=== PATIENT | female | born 1960 | race African-American/Black ===

== ENCOUNTER 2024-01-31 11:13 | Emergency (ER) | payer MEDICAID, OTHER ==
[~2024-01-31] VITALS: Ht 165.1 cm; Wt 65.0 kg
[2024-01-31 11:18] VITALS: O2SAT 98
[2024-01-31] MEDS: VANCOMYCIN 1G PREMIX 200 ML IV ONE (11:30)
[2024-01-31] MEDS: SODIUM CHLORIDE 0.9% 1000ML BAG (SEPSIS BOLUS) IV ONE (11:31)
[2024-01-31] MEDS: ATROPINE SULFATE 1MG/ML VIAL IV ONE (11:36)
[2024-01-31 11:37] VITALS: BP 78/45; PULSE 54; RESP 13; TEMP 36.78072; O2SAT 100
[2024-01-31] MEDS: MEROPENEM 1G/100ML 100 ML IV ONE (11:41)
[2024-01-31 11:52] LABS: BASOPHILS % 1.3 % (0.0-2.0); EOSINOPHILS % 5.3 % (0.0-5.0); HEMATOCRIT. 36.7 % (36.0-48.0); HEMOGLOBIN. 11.7 g/dL (12.0-16.0); LYMPHOCYTES % 37.2 % (20.0-50.0); MEAN CORPUSCULAR HEMOGLOBIN 27.7 pg (28.0-32.0); MEAN CORPUSCULAR HGB CONC 31.7 g/dL (31.0-37.0); MEAN CORPUSCULAR VOLUME 87.4 fL (81.0-99.0); MONOCYTES % 9.4 % (2.0-8.0); NEUTROPHILS % 46.8 % (40.0-76.0); PLATELET 200 x1000/uL (130-400); RED BLOOD CELL COUNT 4.21 mill/uL (4.2-5.4); RED CELL DISTRIBUTION WIDTH 15.3 % (11.6-14.6); WHITE BLOOD COUNT 3.3 x1000/uL (4.5-11.0)
[2024-01-31 11:59] LABS: CHLORIDE 110 mEq/L (98-107); SODIUM 139 mEq/L (136-145)
[2024-01-31 12:00] LABS: CALCIUM 10.1 mg/dL (8.7-10.4); CARBON DIOXIDE 26 mEq/L (21-32); INR 0.9; PROTHROMBIN TIME 10.4 sec (9.6-11.0)
[2024-01-31 12:05] LABS: CREATININE 0.7 mg/dL (0.6-1.0); GLUCOSE 103 mg/dL (70-105); UREA NITROGEN BLOOD 6 mg/dL (9-23)
[2024-01-31 12:07] LABS: ALANINE AMINOTRANSFERASE 20 IU/L (10-49); ASPARTATE AMINOTRANSFERASE 26 IU/L (<34); BILIRUBIN DIRECT 0.1 mg/dL (<=3.0); BILIRUBIN TOTAL 0.3 mg/dL (0.1-1.0); PROTEIN TOTAL 6.6 g/dL (6.0-8.3)
[2024-01-31 12:22] LABS: TROPONIN I HIGH SENSITIVITY < 4 ng/L (3.0-34)
== END 2024-01-31 15:06 | disposition left against medical advice (07) ==
LOC: ER 13:42
DX: R00.1 Bradycardia, unspecified (principal); I95.9 Hypotension, unspecified; Z88.5 Allergy status to narcotic agent; Z87.11 Personal history of peptic ulcer disease
CPT/HCPCS: 80076; 80048; 83605; 85025; 85610; 86850; 86900; 86901; 87040; 84484; 36415; 84145; 71045; 70450; 93005; 96365; 96375; 99291; J0461; J2185; J3370; J7030; Z7610 ×3

== ENCOUNTER → 2025-02-11 | Outpatient (CLI) | payer OTHER | END | disposition home or self-care (01) | LOC: MRI 09:42 | PROVIDERS: ATTEND Family Medicine Adult Medicine | DX: M25.552 Pain in left hip (principal); Z96.642 Presence of left artificial hip joint | CPT/HCPCS: 73721 ==